=== PATIENT | female | born 1985 | race American Indian/Alaskan Native ===

== ENCOUNTER 2017-10-04 13:56 | Emergency (ER) | payer MEDICAID ==
[2017-10-04 13:58] VITALS: BMI 34.4
[2017-10-04 14:03] VITALS: RESP 18
[2017-10-04] MEDS ORDERED: DiphenhydrAMINE 50 mg/ml Inj IVP STA (14:21)
[2017-10-04] MEDS ORDERED: Sodium Chloride 0.9% 1,000 ML IV STA (14:26)
--- NOTE | 2017-10-04 14:31 | ED PDOC ---
Arrival/HPI - General Chief Complaint: Syncope Time Seen by Provider: 10/04/17 13:58 Historian: Patient - History of Present Illness Narrative History of Present Illness (Text): 10/04/17 14:22 31 year old morbidly obese female, whose past medical history includes asthma and intermittent headaches, was brought in by EMS s/p syncopal episode prior to arrival. Patient states she was at a [employer]izz[employer] when she experienced mild headache and dizziness leading up to the episode. Patient is able to recall the incident and informs proper ambulation following the episode. Patient denies any head trauma but informs mild headache. Patient denies any nausea, vomiting, diarrhea, fever, chills, abdominal pain, chest pain, shortness of breath, or any other complaints. Patient presents to the Emergency department for medical evaluation. Time/Duration: Prior to Arrival Symptom Onset: Sudden Symptom Course: Improving Activities at Onset: Light Context: [facility] ([facility] Past Medical History - Provider Review Nursing Documentation Reviewed: Yes - Cardiac Hx Cardiac Disorders: No - Pulmonary Hx Asthma: Yes - Neurological Hx Neurological Disorder: No - HEENT Hx HEENT Disorder: No - Renal Hx Renal Disorder: No - Endocrine/Metabolic Hx Endocrine Disorders: No - Hematological/Oncological Hx Blood Disorders: No - Integumentary Hx Dermatological Disorder: No - Musculoskeletal/Rheumatological Hx Musculoskeletal Disorders: No - Gastrointestinal Hx Gastrointestinal Disorders: No - Genitourinary/Gynecological Hx Genitourinary Disorders: No - Psychiatric Hx Psychophysiologic Disorder: No Hx Substance Use: No Family/Social History - Physician Review Nursing Documentation Reviewed: Yes Family/Social History: No Known Family HX Smoking Status: Never Smoked Hx Alcohol Use: No Hx Substance Use: No Allergies/Home Meds Allergies/Adverse Reactions: Allergies antibiotic unknown Allergy (Uncoded 10/04/17 13:59) ITCHING Home Medications: Home Meds Medication Instructions Recorded Confirmed Albuterol HFA [Ventolin HFA 90 0 mg IH PRN PRN 10/04/17 10/04/17 mcg/actuation (8 g)] Review of Systems - Physician Review All systems were reviewed & negative as marked: Yes - Review of Systems Constitutional: Normal. absent: Fevers Eyes: Normal ENT: Normal Respiratory: Normal. absent: SOB Cardiovascular: Normal. absent: Chest Pain Gastrointestinal: Normal. absent: Abdominal Pain, Diarrhea, Nausea, Vomiting Genitourinary Female: Normal Musculoskeletal: Normal Skin: Normal Neurological: Headache (mild), Dizziness Endocrine: Normal Hemo/Lymphatic: Normal Psychiatric: Normal Physical Exam Vital Signs Reviewed: Yes Vital Signs Temp Pulse Resp BP Pulse Ox 10/04/17 14:27 98 F 86 111/68 10/04/17 13:59 98.3 F 76 18 112/64 98 Temperature: Afebrile Blood Pressure: Normal Pulse: Regular Respiratory Rate: Normal Appearance: Positive for: Well-Appearing, Non-Toxic, Comfortable Pain Distress: None Mental Status: Positive for: Alert and Oriented X 3 - Systems Exam Head: Present: Atraumatic, Normocephalic Pupils: Present: PERRL Extroacular Muscles: Present: EOMI Conjunctiva: Present: Normal Mouth: Present: Moist Mucous Membranes Neck: Present: Normal Range of Motion Respiratory/Chest: Present: Clear to Auscultation, Good Air Exchange. No: Respiratory Distress, Accessory Muscle Use Cardiovascular: Present: Regular Rate and Rhythm, Normal S1, S2. No: Murmurs Abdomen: No: Tenderness, Distention, Peritoneal Signs Back: Present: Normal Inspection Upper Extremity: Present: Normal Inspection, Normal ROM, Neurovascularly Intact , Other (No pronator drift. 5/5 strength). No: Cyanosis, Edema Lower Extremity: Present: Normal Inspection, NORMAL PULSES, Neurovascularly Intact. No: Edema Neurological: Present: GCS=15, CN II-XII Intact, Speech Normal Skin: Present: Warm, Dry, Normal Color. No: Rashes Psychiatric: Present: Alert, Oriented x 3, Normal Insight, Normal Concentration Medical Decision Making ED Course and Treatment: 10/04/17 14:30 Impression: 31 year old female presents to the Emergency department s/p syncope. Differential Diagnosis included but are not limited to: Vasovagal syncope. Plan: --Labs --EKG --Benadryl --Reglan --IV fluids --Tylenol -Urine culture --UA -- Reassess and disposition Progress Notes: 10/04/17 14:30 EKG: Ordered, reviewed, and independently interpreted the EKG. Rate : 61 BPM Rhythm : NSR Interpretation : Normal sinus, normal axis, one inverted t wave at lead 3. 10/04/17 15:38 Upon reassessment, patient states she is feeling better with no headache or dizziness. Patient has steady gait, and expresses no new complaints. All diagnostic lab results are negative. Patient is stable to be discharged home with follow up instructions to make an appointment with PMD. Patient understands and agrees with plan. - Lab Interpretations Lab Results: 10/04/17 14:50 10/04/17 14:50 Lab Results 10/04/17 14:50: Sodium 141, Potassium 4.2, Chloride 103, Carbon Dioxide 28, Anion Gap 14, BUN 9, Creatinine 0.8, Est GFR ( Amer) > 60, Est GFR (Non- Af Amer) > 60, Random Glucose 67 L, Calcium 9.6, Total Bilirubin 0.4, AST 28, ALT 15, Alkaline Phosphatase 77, Total Protein 7.6, Albumin 4.3, Globulin 3.2, Albumin/Globulin Ratio 1.3 10/04/17 14:50: Urine Color Yellow, Urine Appearance Clear, Urine pH 7.0, Ur Specific [place] 1.020, Urine Protein Trace H, Urine Glucose (UA) Negative, Urine Ketones Trace H, Urine Blood Negative, Urine Nitrate Negative, Urine Bilirubin Negative, Urine Urobilinogen 0.2, Ur Leukocyte Esterase Negative, Urine RBC Negative, Urine WBC Negative, Ur Epithelial Cells 6 - 8, Urine Bacteria Mod 10/04/17 14:50: WBC 6.6, RBC 3.89, Hgb 12.4, Hct 36.0, MCV 92.5, MCH 31.9, MCHC 34.4, RDW 13.0, Plt Count 260, MPV 9.0, Gran % 46.3 L, Lymph % (Auto) 39.5 H, [place] % (Auto) 11.8 H, Eos % (Auto) 2.1, Baso % (Auto) 0.3, Gran # 3.05, Lymph # (Auto) 2.6, [place] # (Auto) 0.8 H, Eos # (Auto) 0.1, Baso # (Auto) 0.02 - EKG Interpretation Interpreted by ED Physician: Yes Type: 12 lead EKG - Medication Orders Current Medication Orders: Discontinued Medications Acetaminophen (Tylenol 325mg Tab) 650 mg PO STAT STA Stop: 10/04/17 14:22 Last Admin: 10/04/17 15:02 Dose: 650 mg MAR Pain/Vitals Document 10/04/17 15:02 [facility] (Rec: 10/04/17 15:02 [id number]) Pain Reassessment Is This A Pain ReAssessment? Yes Sleep Is patient sleeping during reassessment? No Presence of Pain Presence of Pain Yes Diphenhydramine HCl (Benadryl) 25 mg IVP STAT STA Stop: 10/04/17 14:22 Last Admin: 10/04/17 15:02 Dose: 25 mg IVP Administration Document 10/04/17 15:02 [facility] (Rec: 10/04/17 15:02 [id number] Charges for Administration # of IVP Administrations 1 Sodium Chloride (Sodium Chloride 0.9%) 1,000 mls @ 999 mls/hr IV .Q1H1M STA Stop: 10/04/17 15:26 Last Admin: 10/04/17 15:01 Dose: 999 mls/hr Metoclopramide HCl (Reglan) 10 mg IVP STAT STA Stop: 10/04/17 14:27 Last Admin: 10/04/17 15:02 Dose: 10 mg IVP Administration Document 10/04/17 15:02 [facility] (Rec: 10/04/17 15:02 [id number] Charges for Administration # of IVP Administrations 1 - Scribe Statement The provider has reviewed the documentation as recorded by the Scribmahamed Butt, training under Ashlyn Espinosa. All medical record entries made by the Scribe were at my direction and personally dictated by me. I have reviewed the chart and agree that the record accurately reflects my personal performance of the history, physical exam, medical decision making, and the department course for this patient. I have also personally directed, reviewed, and agree with the discharge instructions and disposition. Disposition/Present on Arrival - Present on Arrival Any Indicators Present on Arrival: No History of DVT/PE: No History of Uncontrolled Diabetes: No Urinary Catheter: No History of Decub. Ulcer: No History Surgical Site Infection Following: None - Disposition Have Diagnosis and Disposition been Completed?: Yes Diagnosis: Vasovagal syncope, Dizziness Disposition Time: 15:37 Patient Plan: Discharge Patient Problems: Current Active Problems Problem Status Onset Dizziness Acute Vasovagal syncope Acute Condition: GOOD Discharge Instructions (ExitCare): Syncope (Fainting), Dizziness, Nonvertigo, ( DC), Syncope (ED) Forms: [employer] ([place]occan)
[2017-10-04 14:56] VITALS: TEMP 98
[2017-10-04 15:06] LABS: BASO # 0.02 K/mm3 (0.0-2.0); BASO % 0.3 % (0.0-3.0); EOS # 0.1 (0.0-0.7); EOS % 2.1 % (1.5-5.0); GRAN # 3.05 (1.4-6.5); GRAN % 46.3 % (50.0-68.0); HEMOGLOBIN 12.4 g/dL (12.0-16.0); LYMPH # 2.6 (1.2-3.4); LYMPH % 39.5 % (22.0-35.0); MEAN CELL VOLUME 92.5 fl (80.0-105.0); MEAN CORPUSCULAR HEMOGLOBIN 31.9 pg (25.0-35.0); MEAN CORPUSCULAR HGB CONC 34.4 g/dl (31.0-37.0); MONO # 0.8 (0.1-0.6); MONO % 11.8 % (1.0-6.0); RBC 3.89 10^6/uL (3.5-6.1); WHITE BLOOD COUNT 6.6 10^3/ul (4.5-11.0)
[2017-10-04 15:10] LABS: URINE APPEARANCE CLEAR (CLEAR); URINE BILIRUBIN NEGATIVE (NEGATIVE); URINE BLOOD NEGATIVE (NEGATIVE); URINE COLOR YELLOW (YELLOW); URINE GLUCOSE (UA) NEGATIVE (NEGATIVE); URINE LEUKOCYTE ESTERASE NEGATIVE Leu/uL (NEGATIVE); URINE PROTEIN TRACE mg/dL (<30 mg/dL); URINE UROBILINOGEN 0.2 E.U./dL (<1 E.U./dL)
[2017-10-04 15:17] LABS: ALB/GLOB RATIO 1.3 (1.1-1.8); ALBUMIN 4.3 g/dL (3.0-4.8); ALT/SGPT 15 U/L (7-56); AST/SGOT 28 U/L (14-36); BLOOD UREA NITROGEN 9 mg/dL (7-21); CALCIUM 9.6 mg/dL (8.4-10.5); GFR AFRICAN-AMERICAN > 60; GFR NON-AFRICAN AMERICAN > 60
[2017-10-04 15:20] LABS: URINE BACTERIA MOD (NEG); URINE RBC NEGATIVE /hpf (0-2); URINE WBC NEGATIVE /hpf (0-6)
[2017-10-04 15:51] VITALS: BP 112/62; PULSE 85; O2SAT 100
--- NOTE | 2017-10-05 09:00 | CARD ---
APPROVED REPORT EKG Measurement Heart [id number] <Conclusion> Normal sinus rhythm Normal ECG
== END 2017-10-04 15:50 | disposition home or self-care (01) ==
LOC: ED 13:56
DX: R42 Dizziness and giddiness (principal); R55 Syncope and collapse; E66.01 Morbid (severe) obesity due to excess calories
CPT/HCPCS: 80053; 81001; 85025; 87086; 93005; 96374; 96375; 99285; J1200; J2765; J7030